=== PATIENT | female | born 1965 | race Caucasian/White ===

== ENCOUNTER 2016-09-25 12:52 | Emergency (ER) | payer OTHER ==
--- NOTE | 2016-09-25 13:39 | ER Document Report ---
ED General - General Chief Complaint: Unresponsive Stated Complaint: BACK PAIN Time Seen by Provider: 09/25/16 13:11 Information source: Patient, Relative, Emergency Med Personnel, Office Notes: Patient was sent over from the pain management Center after the patient was receiving her first infusion of ketamine. Patient received 100 mg of ketamine over 3 hours. Supposedly the patient went "unresponsive" for around a 32nd period. There was supposedly no desaturations. The patient's blood pressure was supposedly elevated. They provided Versed and clonidine and sent the patient here for evaluation. Patient is currently sitting up smiling in no acute distress. She denies any headache, chest pain, nausea, vomiting, abdominal pain, weakness or numbness. - HPI Onset: Other - See above Onset/Duration: Sudden Quality of pain: No pain Severity: Mild Pain Level: 1 Associated symptoms: Other - See above Exacerbated by: Denies Relieved by: Denies - Related Data Allergies/Adverse Reactions: No Known Allergies Allergy (Verified 09/25/16 14:08) Past Medical History - General Information source: Patient - Social History Smoking Status: Unknown if Ever Smoked Cigarette use (# per day): No Chew tobacco use (# tins/day): No Smoking Education Provided: No Frequency of alcohol use: None Drug Abuse: None Family History: Reviewed & Not Pertinent Review of Systems - Review of Systems Constitutional: denies: Fever EENT: denies: Eye discharge, Nose discharge Cardiovascular: denies: Chest pain, Palpitations, Dyspnea Respiratory: denies: Short of breath Gastrointestinal: denies: Abdomen distended, Abdominal pain, Vomiting Genitourinary: denies: Dysuria Musculoskeletal: denies: Leg swelling Skin: Other - no hives. denies: Rash Neurological/Psychological: Other - no slurred speech -: Yes All other systems reviewed and negative Physical Exam - Vital signs Vitals: Temp Pulse Resp BP Pulse Ox 97.9 F 72 18 120/83 86 L 09/25/16 12:56 09/25/16 12:56 09/25/16 12:56 09/25/16 12:56 09/25/16 12:56 Interpretation: Normal Notes: Reviewed vital signs and nursing note as charted by RN. CONSTITUTIONAL: Alert and oriented and responds appropriately to questions. Well -appearing; well-nourished HEAD: Normocephalic; atraumatic EYES: PERRL; Conjunctivae clear, sclerae non-icteric ENT: Normal nose; no rhinorrhea; moist mucous membranes; pharynx without lesions noted NECK: Supple without meningismus; non-tender; no carotid bruits, no cervical lymphadenopathy, no masses CARD: Regular rate and rhythm; no murmurs, no clicks, no rubs, no gallops; symmetric distal pulses RESP: Normal chest excursion without splinting or tachypnea; breath sounds clear and equal bilaterally ABD/GI: Normal bowel sounds; non-distended; soft, non-tender, no rebound, no guarding; no palpable organomegaly or masses BACK: The back appears normal and is non-tender to palpation EXT: Normal ROM in all joints; non-tender to palpation; no cyanosis, no effusions, no edema SKIN: Normal color for age and race; warm; dry; good turgor; capillary refill < 2 seconds; no acute lesions noted NEURO: CN 2-12. 5/5 bilateral upper and lower extremities strength with sensation intact to light touch. PSYCH: The patient's mood and manner are appropriate. Grooming and personal hygiene are appropriate. Course - Re-evaluation Re-evalutation: 09/25/16 13:[address] Jameel Acevedo's [employer]. I then spoke to Tarsha the RN with the patient. I have expressed that the patient is currently symptom free with a BP of 110/70. Supposedly this was after the ketamine infusion was over. This was her first ketamine infusion. She was 0.2 mg IV 2/2 blood pressure. She states that the patient did complain of headache. Pt denies any headache or weakness or numbness at this time. 09/25/16 13:40 EKG shows a heart of 64, normal sinus rhythm, normal axis, no obvious ST elevation or depression, inverted T waves in leads 3 and V2. Given the above history and physical examination, we will monitor the patient for short period of time. If the patient remains symptom-free, I do not believe that the patient requires any imaging or laboratory work at this time. 09/25/16 15:19 We have observed the patient in the emergency department for around 3 hours. Patient did initially have some low oxygen saturation despite any complaints of shortness of breath or chest pain. Patient had thick acrylic on her nails so we moved the pulse oximeter to the earlobe. She is satting 98% on room male. She is currently in the room doing back stretches. Patient will be discharged home at this time with strict return precautions. is in the room and is very comfortable with this plan. - Vital Signs Vital signs: Temp Pulse Resp BP Pulse Ox 97.9 F 72 16 111/73 92 09/25/16 12:56 09/25/16 12:56 09/25/16 15:01 09/25/16 15:01 09/25/16 15:01 Discharge - Discharge Clinical Impression: Altered mental status, unspecified Qualifiers: Altered mental status type: unspecified Qualified Code(s): R41.82 - Altered mental status, unspecified Condition: Good Disposition: HOME, SELF-CARE Additional Instructions: Come back immediately with any change in mental status, chest pain, fevers, shortness of breath, nausea, vomiting, fevers, or any other acute problems. Please follow-up with your doctor as we have discussed.
--- NOTE | 2016-09-25 13:40 | EKG REPORT ---
SEVERITY:- BORDERLINE ECG - SINUS RHYTHM BORDERLINE T ABNORMALITIES, ANTERIOR LEADS : Confirmed by: Kenn Bennett 25-Sep-2016 13:39:49
[2016-09-25 15:53] VITALS: BP 132/70
== END 2016-09-25 15:35 | disposition home or self-care (01) ==
LOC: ER 12:52
DX: R41.82 Altered mental status, unspecified (principal); M54.9 Dorsalgia, unspecified; Z98.890 Other specified postprocedural states
CPT/HCPCS: 93005; 93010; 99285